=== PATIENT | male | born 1995 | race Caucasian/White ===

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

== ENCOUNTER 2017-02-12 16:32 | Emergency (ER) | payer MEDICAID ==
[2017-02-12 16:46] VITALS: BP 112/68
[2017-02-12] MEDS ORDERED: Magnesium Citrate Solution 296 ML Bottle PO ONE (17:20)
--- NOTE | 2017-02-12 17:25 | EDM.PDOC ---
ED HPI GENERAL MEDICAL PROBLEM - General Chief Complaint: Gastrointestinal Problem Stated Complaint: constipated Time Seen by Provider: 02/12/17 16:50 Source of Information: Reports: Patient History Limitations: Reports: No Limitations - History of Present Illness INITIAL COMMENTS - FREE TEXT/NARRATIVE: 21-year-old male with problems of chronic constipation presents with abdominal pain because he hasn't had a bowel movement in 3 weeks. When pressed he admits he has loose stools and small hard stools but no significant bowel movement. He' s been trying MiraLAX for the last several days without results. No nausea or vomiting, no fever. Onset: Gradual, Unknown/Unsure Location: Reports: Abdomen Severity: Mild Associated Symptoms: Reports: No Other Symptoms Abdominal Pain Score (Numeric/FACES): 8 - Related Data Allergies Allergy/AdvReac Type Severity Reaction Status Date / Time banana Allergy Airway Verified 02/12/17 16:49 Tightness Home Meds: Home Meds Polyethylene Glycol 3350 [MiraLAX] 17 gm PO DAILY 02/12/17 [History] Past Medical History HEENT History: Reports: Impaired Vision Cardiovascular History: Reports: None Respiratory History: Reports: Asthma Gastrointestinal History: Reports: Chronic Constipation Genitourinary History: Reports: None Musculoskeletal History: Reports: None Neurological History: Reports: Concussion Psychiatric History: Reports: Anxiety, Bipolar, Depression Endocrine/Metabolic History: Reports: None Hematologic History: Reports: None Immunologic History: Reports: None Oncologic (Cancer) History: Reports: None Dermatologic History: Reports: None - Infectious Disease History Infectious Disease History: Reports: None - Past Surgical History Head Surgeries/Procedures: Reports: None Cardiovascular Surgical History: Reports: None Musculoskeletal Surgical History: Reports: None Oncologic Surgical History: Reports: None Dermatological Surgical History: Reports: None Social & Family History - Tobacco Use Smoking Status *Q: Former Smoker Years of Tobacco use: 1 Packs/Tins Daily: 0.1 Used Tobacco, but Quit: Yes Month Tobacco Last Used: 2 weeks ago - Caffeine Use Caffeine Use: Reports: Coffee, Energy Drinks, Soda - Recreational Drug Use Recreational Drug Use: Yes Recreational Drug Type: Reports: Marijuana/Hashish Recreational Drug Use Frequency: Weekly - Living Situation & Occupation Living situation: Reports: Single (lives in [place] with Girlfriend and other friends.) ED ROS GENERAL - Review of Systems Review Of Systems: See Below Constitutional: Denies: Fever, Chills Respiratory: Denies: Shortness of Breath GI/Abdominal: Reports: Abdominal Pain, Constipation. Denies: Nausea, Vomiting Skin: Reports: No Symptoms Neurological: Reports: No Symptoms ED EXAM, GI/ABD - Physical Exam Exam: See Below Exam Limited By: No Limitations General Appearance: Alert, No Apparent Distress Respiratory/Chest: No Respiratory Distress GI/Abdominal Exam: Normal Bowel Sounds, Soft Rectal (Males) Exam: Normal Exam, Other (Moderate amount of soft brown stool is present in the rectum). No: Fecal Impaction Course - Vital Signs Last Recorded V/S: Last Vital Signs Temp 96.6 F 02/12/17 16:47 Pulse 85 02/12/17 16:47 Resp 20 02/12/17 16:47 BP 112/68 02/12/17 16:47 Pulse Ox 93 L 02/12/17 16:47 - Orders/Labs/Meds Orders: Active Orders 24 hr Category Date Time Status Abdomen 2V AP Flat Upright [CR] Stat Exams 02/12/17 17:02 Taken Meds: Medications Discontinued Medications Generic Name Dose Route Start Last Admin Trade Name Luis Carlos PRN Reason Stop Dose Admin Magnesium Citrate 296 ml 02/12/17 17:20 02/12/17 17:31 Citrate Of Magnesia PO 02/12/17 17:21 296 ml ONETIME ONE Administration - Re-Assessments/Exams Free Text/Narrative Re-Assessment/Exam: 02/12/17 17:23 A flat and upright abdominal x-ray was obtained. It did show a fair amount of rectal stool but no widespread colonic impaction or bowel obstruction. The patient was offered an enema but declined. He then said magnesium citrate worked for him in the past so he was given 1 bottle of mag citrate with instructions and will recheck next week if not improving satisfactorily. I encouraged him to get more fiber in his diet but he said that he can only afford [employer] noodles and that's all he's been eating for the past month. Departure - Departure Time of Disposition: 17:29 Disposition: Home, Self-Care 01 Condition: Good Clinical Impression: Constipation by delayed colonic transit - Discharge Information Instructions: Constipation, Adult, [id number] Referrals: PCP,None [Primary Care Provider] - Forms: ED Department Discharge Care Plan Goals: Increase fiber in your diet if possible, and use mag citrate as directed. Recheck next week if not improving satisfactorily. - My Orders Last 24 Hours: My Active Orders 02/12/17 17:02 Abdomen 2V AP Flat Upright [CR] Stat - Assessment/Plan Last 24 Hours: My Active Orders 02/12/17 17:02 Abdomen 2V AP Flat Upright [CR] Stat
--- NOTE | 2017-02-13 08:46 | CR ---
Abdomen 2V AP Flat Upright FINDINGS: The bowel gas pattern is unremarkable. There is no bowel distention. There are no pathologi c air-fluid levels. No free air is seen. There is a large amount of stool distending the rectum. Impression 1. Large amount of rectal stool. The finding may reflect fecal impaction.
== END 2017-02-12 17:32 | disposition home or self-care (01) ==
LOC: JP.ED 16:32
DX: K59.01 Slow transit constipation (principal); Z87.891 Personal history of nicotine dependence; Z79.899 Other long term (current) drug therapy; Z91.018 Allergy to other foods
CPT/HCPCS: 74020; 99284; A9270

== ENCOUNTER 2017-02-24 16:13 | Emergency (ER) | payer MEDICAID ==
[2017-02-24 16:26] VITALS: BP 117/65
--- NOTE | 2017-02-24 16:52 | EDM.PDOCBH ---
ED HPI GENERAL MEDICAL PROBLEM - General Chief Complaint: Behavioral/Psych Stated Complaint: EVAL Time Seen by Provider: 02/24/17 16:35 Source of Information: Reports: Patient, RN History Limitations: Reports: No Limitations - History of Present Illness INITIAL COMMENTS - FREE TEXT/NARRATIVE: 21 yo male presents after getting into an argument with his girlfriend and threatening suicide. She called the police who brought him in for evaluation. Fer states that he in fact is not suicidal or depressed. He did not take anything to try and harm himself and he has never attempted suicide in the past. He has no plan. Onset: Today Onset Date: 02/24/17 Onset Time: 15:00 Duration: Minutes:, Resolved Prior to Arrival Location: Reports: Head Severity: Mild Improves with: Reports: Other (time) Context: Reports: Other (fight with girlfriend) Associated Symptoms: Reports: No Other Symptoms Treatments COUPLER: Reports: Other (see below) (none) - Related Data Allergies Allergy/AdvReac Type Severity Reaction Status Date / Time banana Allergy Airway Verified 02/12/17 16:49 Tightness Home Meds: Home Meds Polyethylene Glycol 3350 [MiraLAX] 17 gm PO DAILY 02/12/17 [History] FLUoxetine [PROzac] 20 mg PO DAILY 02/24/17 [History] Omeprazole [Omeprazole] 20 mg PO DAILY 02/24/17 [History] Past Medical History HEENT History: Reports: Impaired Vision Cardiovascular History: Reports: None Respiratory History: Reports: Asthma Gastrointestinal History: Reports: Chronic Constipation Genitourinary History: Reports: None Musculoskeletal History: Reports: None Neurological History: Reports: Concussion Psychiatric History: Reports: Anxiety, Bipolar, Depression Endocrine/Metabolic History: Reports: None Hematologic History: Reports: None Immunologic History: Reports: None Oncologic (Cancer) History: Reports: None Dermatologic History: Reports: None - Infectious Disease History Infectious Disease History: Reports: None - Past Surgical History Head Surgeries/Procedures: Reports: None Cardiovascular Surgical History: Reports: None Musculoskeletal Surgical History: Reports: None Oncologic Surgical History: Reports: None Dermatological Surgical History: Reports: None Social & Family History - Tobacco Use Smoking Status *Q: Never Smoker Years of Tobacco use: 1 Packs/Tins Daily: 0.1 Used Tobacco, but Quit: Yes Month Tobacco Last Used: 2 weeks ago - Caffeine Use Caffeine Use: Reports: Energy Drinks, Soda - Recreational Drug Use Recreational Drug Use: Yes Recreational Drug Type: Reports: Marijuana/Hashish Recreational Drug Use Frequency: Weekly - Living Situation & Occupation Living situation: Reports: Single (lives in [place] with Girlfriend and other friends.) ED ROS GENERAL - Review of Systems Review Of Systems: See Below Constitutional: Reports: No Symptoms HEENT: Reports: No Symptoms Respiratory: Reports: No Symptoms Cardiovascular: Reports: No Symptoms Endocrine: Reports: No Symptoms GI/Abdominal: Reports: No Symptoms : Reports: No Symptoms Musculoskeletal: Reports: No Symptoms Skin: Reports: No Symptoms Neurological: Reports: No Symptoms Psychiatric: Denies: Depression, Homicidal Ideation, Suicidal Ideation ED EXAM, BEHAVIORAL HEALTH - Physical Exam Exam: See Below Exam Limited By: No Limitations General Appearance: Alert, WD/WN, No Apparent Distress Eye Exam: Bilateral Eye: Normal Inspection, Other (good eye contact) Ears: Normal External Exam, Normal Canal, Hearing Grossly Normal Nose: Normal Inspection, Normal Mucosa, No Blood Throat/Mouth: Normal Inspection, Normal Lips, Normal Oropharynx, Normal Voice, No Airway Compromise Head: Atraumatic, Normocephalic Neck: Normal Inspection, Supple, Non-Tender Respiratory/Chest: No Respiratory Distress, Lungs Clear, Normal Breath Sounds, No Accessory Muscle Use Cardiovascular: Regular Rate, Rhythm, No Edema GI/Abdominal: Soft, Non-Tender Back Exam: Normal Inspection Extremities: Normal Inspection, Normal Range of Motion, Non-Tender, No Pedal Edema Neurological: Alert, Normal Mood/Affect, CN II-XII Intact, Normal Cognition, Normal Gait, No Motor/Sensory Deficits, Oriented x 3 Psychiatric: Alert, Normal Affect, Normal Cognition, Normal Mood. No: Depressed Mood, Flat Affect, Tearful, Poor Eye Contact, Homicidal Thoughts, Suicidal Plan, Suicidal Thoughts, Auditory Hallucinations Skin Exam: Warm, Dry, Intact, Normal color, No rash COURSE, BEHAVIORAL HEALTH COMP - Course Vital Signs: Last Vital Signs Temp 36.5 C 02/24/17 16:25 Pulse 80 02/24/17 16:25 Resp 16 02/24/17 16:25 BP 117/65 02/24/17 16:25 Pulse Ox 99 02/24/17 16:25 Orders, Labs, Meds: Active Orders 24 hr Category Date Time Status DRUG SCREEN, URINE [URCHEM] Stat Lab 02/24/17 16:20 Uncollected Departure - Departure Time of Disposition: 16:52 Disposition: Home, Self-Care 01 Condition: Good Clinical Impression: Threatening to self - Discharge Information Referrals: Britney Neal NP [Primary Care Provider] - Forms: ED Department Discharge Additional Instructions: Return here if you actually become suicidal. Otherwise, follow up with your provider for recheck in the next 1-2 weeks. - My Orders Last 24 Hours: My Active Orders 02/24/17 16:20 DRUG SCREEN, URINE [URCHEM] Stat - Assessment/Plan Last 24 Hours: My Active Orders 02/24/17 16:20 DRUG SCREEN, URINE [URCHEM] Stat
== END 2017-02-24 16:58 | disposition home or self-care (01) ==
LOC: JP.ED 16:13
DX: R45.851 Suicidal ideations (principal); F32.9 Major depressive disorder, single episode, unspecified; Z87.891 Personal history of nicotine dependence; Z79.899 Other long term (current) drug therapy; Z91.018 Allergy to other foods
CPT/HCPCS: 99284; 99285

== ENCOUNTER 2017-05-03 09:17 | Emergency (ER) | payer MEDICAID ==
[2017-05-03 09:29] VITALS: BP 124/51
[2017-05-03] MEDS ORDERED: Magnesium Citrate Solution 296 ML Bottle PO ONE (09:47)
--- NOTE | 2017-05-03 09:51 | EDM.PDOC ---
ED HPI GENERAL MEDICAL PROBLEM - General Chief Complaint: Gastrointestinal Problem Stated Complaint: ANAL PAIN/CONSTIPATED Time Seen by Provider: 05/03/17 09:45 Source of Information: Reports: Patient History Limitations: Reports: No Limitations - History of Present Illness INITIAL COMMENTS - FREE TEXT/NARRATIVE: 21-year-old male who tends to get recurring constipation problems. We saw him last fall when he responded to oral mag citrate, over the last several days he' s had an increase in rectal pressure and pain. He did not try any mag citrate because he has no money, his main reason for coming into the emergency room was to get some medicine. No fevers or chills, no nausea or vomiting. Onset: Gradual (Over the past several days) Location: Reports: Other (Most of his complaints are perirectal) Severity: Moderate Associated Symptoms: Denies: Fever/Chills, Loss of Appetite, Malaise, Nausea/ Vomiting, Shortness of Breath, Weakness Rectal Pain Score (Numeric/FACES): 9 - Related Data Allergies Allergy/AdvReac Type Severity Reaction Status Date / Time banana Allergy Airway Verified 02/12/17 16:49 Tightness Home Meds: Home Meds Polyethylene Glycol 3350 [MiraLAX] 17 gm PO DAILY 02/12/17 [History] FLUoxetine [PROzac] 20 mg PO DAILY 02/24/17 [History] Omeprazole [Omeprazole] 20 mg PO DAILY 02/24/17 [History] Past Medical History HEENT History: Reports: Impaired Vision Cardiovascular History: Reports: None Respiratory History: Reports: Asthma Gastrointestinal History: Reports: Chronic Constipation Genitourinary History: Reports: None Musculoskeletal History: Reports: None Neurological History: Reports: Concussion Psychiatric History: Reports: Anxiety, Bipolar, Depression Endocrine/Metabolic History: Reports: None Hematologic History: Reports: None Immunologic History: Reports: None Oncologic (Cancer) History: Reports: None Dermatologic History: Reports: None - Infectious Disease History Infectious Disease History: Reports: None - Past Surgical History Head Surgeries/Procedures: Reports: None Cardiovascular Surgical History: Reports: None Musculoskeletal Surgical History: Reports: None Oncologic Surgical History: Reports: None Dermatological Surgical History: Reports: None Social & Family History - Tobacco Use Smoking Status *Q: Current Some Day Smoker Years of Tobacco use: 2 Packs/Tins Daily: 0.2 Used Tobacco, but Quit: Yes Month/Year Tobacco Last Used: 2 weeks ago - Caffeine Use Caffeine Use: Reports: Energy Drinks, Soda - Recreational Drug Use Recreational Drug Use: Yes Recreational Drug Type: Reports: Marijuana/Hashish Recreational Drug Use Frequency: Weekly - Living Situation & Occupation Living situation: Reports: Single (lives in [place] with Girlfriend and other friends.) ED ROS GENERAL - Review of Systems Review Of Systems: See Below Constitutional: Denies: Fever Respiratory: Denies: Shortness of Breath Cardiovascular: Denies: Chest Pain GI/Abdominal: Denies: Abdominal Pain (Pain is only perirectal and pelvic) Skin: Reports: No Symptoms Neurological: Reports: No Symptoms ED EXAM, GENERAL - Physical Exam Exam: See Below Exam Limited By: Uncooperative (Unfortunately the patient would not allow me to do any exam, not even a visual inspection of the perianal area for hemorrhoids) Respiratory/Chest: No Respiratory Distress Rectal (Males) Exam: Other (Patient refused) Course - Vital Signs Last Recorded V/S: Last Vital Signs Temp 93.7 F L 05/03/17 09:30 Pulse 60 05/03/17 09:30 Resp 16 05/03/17 09:30 BP 124/51 L 05/03/17 09:30 Pulse Ox 97 05/03/17 09:30 - Orders/Labs/Meds Meds: Medications Discontinued Medications Generic Name Dose Route Start Last Admin Trade Name Luis Carlos PRN Reason Stop Dose Admin Magnesium Citrate 296 ml 05/03/17 09:47 05/03/17 09:58 Citrate Of Magnesia PO 05/03/17 09:48 296 ml ONETIME ONE Administration - Re-Assessments/Exams Free Text/Narrative Re-Assessment/Exam: 05/03/17 09:50 Patient was given a bottle of mag citrate to use as prescribed. Departure - Departure Time of Disposition: 09:54 Disposition: Home, Self-Care 01 Condition: Good Clinical Impression: Constipation - Discharge Information Instructions: Constipation, Adult, [id number] Referrals: Kellie Olmstead MD [Primary Care Provider] - Forms: ED Department Discharge Care Plan Goals: Use mag citrate as prescribed, drink lots of water and resume regular MiraLAX and stool softeners if needed to avoid future episodes. Recheck at the clinic in the next 24-48 hours if not improving satisfactorily.
== END 2017-05-03 10:05 | disposition home or self-care (01) ==
LOC: JP.ED 09:17
DX: K59.00 Constipation, unspecified (principal); F17.210 Nicotine dependence, cigarettes, uncomplicated; F41.9 Anxiety disorder, unspecified; F31.9 Bipolar disorder, unspecified; Z79.899 Other long term (current) drug therapy; Z91.018 Allergy to other foods
CPT/HCPCS: 99283; A9270

== ENCOUNTER 2017-10-14 17:10 | Emergency (ER) | payer MEDICAID ==
[2017-10-14 18:05] VITALS: BP 120/62
--- NOTE | 2017-10-14 18:30 | EDM.PDOC ---
ED HPI GENERAL MEDICAL PROBLEM - General Chief Complaint: ENT Problem Stated Complaint: TEMP,SORE THROAT Time Seen by Provider: 10/14/17 18:15 Source of Information: Reports: Patient History Limitations: Reports: No Limitations - History of Present Illness INITIAL COMMENTS - FREE TEXT/NARRATIVE: 21-year-old male with a sore throat for the past 2 days, body aches, cough, and persistent fevers. No nausea or vomiting. Mild headache. Onset: Gradual Duration: Day(s): (2 days) Associated Symptoms: Reports: Cough, Fever/Chills, Headaches, Other (Main complaint is sore throat) - Related Data Allergies Allergy/AdvReac Type Severity Reaction Status Date / Time banana Allergy Airway Verified 10/14/17 18:12 Tightness Home Meds: Home Meds Polyethylene Glycol 3350 [MiraLAX] 17 gm PO DAILY PRN 02/12/17 [History] Past Medical History HEENT History: Reports: Impaired Vision Cardiovascular History: Reports: None Respiratory History: Reports: Asthma Gastrointestinal History: Reports: Chronic Constipation Genitourinary History: Reports: None Musculoskeletal History: Reports: None Neurological History: Reports: Concussion Psychiatric History: Reports: Anxiety, Bipolar, Depression Endocrine/Metabolic History: Reports: None Hematologic History: Reports: None Immunologic History: Reports: None Oncologic (Cancer) History: Reports: None Dermatologic History: Reports: None - Infectious Disease History Infectious Disease History: Reports: None - Past Surgical History Head Surgeries/Procedures: Reports: None Cardiovascular Surgical History: Reports: None Musculoskeletal Surgical History: Reports: None Oncologic Surgical History: Reports: None Dermatological Surgical History: Reports: None Social & Family History - Tobacco Use Tobacco Use Comment: currant some day smoker - Caffeine Use Caffeine Use: Reports: Coffee, Soda - Recreational Drug Use Recreational Drug Use: Yes Recreational Drug Type: Reports: Marijuana/Hashish - Living Situation & Occupation Living situation: Reports: Single (lives in [place] with Girlfriend and other friends.) ED ROS GENERAL - Review of Systems Review Of Systems: See Below Constitutional: Reports: Fever, Chills, Malaise, Decreased Appetite HEENT: Reports: Throat Pain. Denies: Ear Pain Respiratory: Reports: Cough. Denies: Shortness of Breath Cardiovascular: Denies: Chest Pain GI/Abdominal: Denies: Abdominal Pain, Diarrhea, Nausea, Vomiting : Reports: No Symptoms Skin: Reports: No Symptoms Neurological: Reports: No Symptoms ED EXAM, GENERAL - Physical Exam Exam: See Below Exam Limited By: No Limitations General Appearance: Alert, No Apparent Distress Eye Exam: Bilateral Eye: Normal Inspection Ears: Normal TMs Throat/Mouth: Other (Some erythema of the tonsils, no exudate or asymmetry) Head: Atraumatic Neck: Lymphadenopathy (R) (Mild tender cervical adenopathy), Lymphadenopathy (L) Respiratory/Chest: No Respiratory Distress, Lungs Clear Neurological: Alert, Oriented Skin Exam: No Rash Course - Vital Signs Last Recorded V/S: Last Vital Signs Temp 102.1 F H 10/14/17 18:15 Pulse 91 10/14/17 18:15 Resp 18 10/14/17 18:15 BP 120/62 10/14/17 18:15 Pulse Ox 99 10/14/17 18:15 - Orders/Labs/Meds Orders: Active Orders 24 hr Category Date Time Status STREP SCRN A RAPID W CULT CONF [RM] Routine Lab 10/14/17 18:25 Ordered - Re-Assessments/Exams Free Text/Narrative Re-Assessment/Exam: 10/14/17 18:30 Rapid strep was obtained. 10/14/17 18:56 Strep was positive. Patient will be started on Pen-Vee K 500 mg 4 times a day for at least 7 days. Recheck in 2-3 days if not improving satisfactorily. Departure - Departure Time of Disposition: 19:05 Disposition: Home, Self-Care 01 Condition: Good Clinical Impression: Strep pharyngitis - Discharge Information Instructions: Strep Throat, [id number] Referrals: Kellie Olmstead MD [Primary Care Provider] - Forms: ED Department Discharge Care Plan Goals: Take antibiotic 4 times a day for at least 7 days, drink lots of water and get rest for the next few days. Consider rechecking in 2-3 days if not improving despite treatment. Ibuprofen or naproxen will help with pain and fever. - My Orders Last 24 Hours: My Active Orders 10/14/17 18:25 STREP SCRN A RAPID W CULT CONF [RM] Routine - Assessment/Plan Last 24 Hours: My Active Orders 10/14/17 18:25 STREP SCRN A RAPID W CULT CONF [RM] Routine
== END 2017-10-14 19:04 | disposition home or self-care (01) ==
LOC: JP.ED 17:10
DX: J02.0 Streptococcal pharyngitis (principal); Z91.018 Allergy to other foods; F17.200 Nicotine dependence, unspecified, uncomplicated
CPT/HCPCS: 87430; 99284

== ENCOUNTER 2018-02-19 22:19 | Emergency (ER) | payer MEDICAID ==
[2018-02-19 22:50] VITALS: BP 115/65
--- NOTE | 2018-02-19 23:16 | EDM.PDOC ---
ED HPI GENERAL MEDICAL PROBLEM - General Chief Complaint: General Stated Complaint: LUMPS IN ABDOMEN Time Seen by Provider: 02/19/18 22:52 Source of Information: Reports: Patient History Limitations: Reports: No Limitations - History of Present Illness INITIAL COMMENTS - FREE TEXT/NARRATIVE: This young man comes in because he thinks he has inguinal hernias that suddenly appeared. He notices some lumps in his groin in the area of the inguinal ligament that it just popped up within the past 2 days. They are tender. He is sexually active and his partner is here with him. - Related Data Allergies Allergy/AdvReac Type Severity Reaction Status Date / Time avocado Allergy Blurred Verified 02/19/18 22:44 Vision banana Allergy Airway Verified 02/19/18 22:44 Tightness Home Meds: Home Meds Polyethylene Glycol 3350 [MiraLAX] 17 gm PO DAILY PRN 02/12/17 [History] Past Medical History HEENT History: Reports: Impaired Vision Cardiovascular History: Reports: None Respiratory History: Reports: Asthma Gastrointestinal History: Reports: Chronic Constipation Genitourinary History: Reports: None Musculoskeletal History: Reports: None Neurological History: Reports: Concussion Psychiatric History: Reports: ADHD, Anxiety, Depression, Other (See Below) Other Psychiatric History: asbergers Endocrine/Metabolic History: Reports: None Hematologic History: Reports: None Immunologic History: Reports: None Oncologic (Cancer) History: Reports: None Dermatologic History: Reports: None - Infectious Disease History Infectious Disease History: Reports: None - Past Surgical History Head Surgeries/Procedures: Reports: None Cardiovascular Surgical History: Reports: None Musculoskeletal Surgical History: Reports: None Oncologic Surgical History: Reports: None Dermatological Surgical History: Reports: None Social & Family History - Tobacco Use Smoking Status *Q: Never Smoker - Caffeine Use Caffeine Use: Reports: Energy Drinks, Soda - Recreational Drug Use Recreational Drug Use: Yes Drug Use in Last 12 Months: Yes Recreational Drug Use Frequency: Not Used In Over 6 Months - Living Situation & Occupation Living situation: Reports: Single (lives in [place] with Girlfriend and other friends.) ED ROS GENERAL - Review of Systems Review Of Systems: ROS reveals no pertinent complaints other than HPI. ED EXAM, GENERAL - Physical Exam Exam: See Below Exam Limited By: No Limitations General Appearance: Alert, WD/WN, No Apparent Distress (Male) Exam: Other (Bilateral tender inguinal adenopathy consistent with typical LGV. No penile discharge. ) Course - Vital Signs Last Recorded V/S: Last Vital Signs Temp 36.1 C 02/19/18 22:46 Pulse 81 02/19/18 22:46 Resp 16 02/19/18 22:46 BP 115/65 02/19/18 22:46 Pulse Ox 98 02/19/18 22:46 - Orders/Labs/Meds Orders: Active Orders 24 hr Category Date Time Status CHLAMYDIA/GC AMPLIFICATION Routine Lab 02/19/18 23:35 Received - Re-Assessments/Exams Free Text/Narrative Re-Assessment/Exam: 02/20/18 06:49 Urine sent for GC chlamydia. I discussed with lab doing LGV titers doesn't seem that test is really available. I explained the treatment to the patient and his partner the patient will need 21 days of doxycycline and the young lady will need to see her doctor because she'll need to be treated for chlamydia also and I believe she'll need doxycycline twice daily for a week. They are aware that both of them need to be treated simultaneously. Departure - Departure Time of Disposition: 23:11 Disposition: Home, Self-Care 01 Condition: Fair Clinical Impression: Lymphogranuloma venereum - Discharge Information Instructions: Chlamydia, Male Referrals: Kellie Olmstead MD [Primary Care Provider] - Forms: ED Department Discharge Additional Instructions: Or swollen lymph nodes. This is typically what you get from a long-standing Chlamydia infection. This is a sexually transmitted illness and when it gets in the lymph nodes it is called lymphogranuloma venereum. It's treated with doxycycline 100 mg twice daily for 21 days. This is a much longer treatment then plain old Chlamydia. Note that your partner needs to be treated for chlamydia at the same time and she will need to talk to her doctor about this. A test for chlamydia in the urine will be sent out. Even if that test comes back negative I still highly recommend that both you and your partner undergo treatment as above. - My Orders Last 24 Hours: My Active Orders 02/19/18 23:35 CHLAMYDIA/GC AMPLIFICATION Routine - Assessment/Plan Last 24 Hours: My Active Orders 02/19/18 23:35 CHLAMYDIA/GC AMPLIFICATION Routine
[2018-02-24 09:18] LABS: CHLAMYDIA TRACHOMATIS, NAA Positive (Negative); NEISSERIA GONORRHOEAE, NAA Negative (Negative)
== END 2018-02-19 23:40 | disposition home or self-care (01) ==
LOC: JP.ED 22:19
DX: A55 Chlamydial lymphogranuloma (venereum) (principal); Z91.018 Allergy to other foods
CPT/HCPCS: 87491; 87591; 99283; 99284

== ENCOUNTER 2018-06-29 02:42 | Emergency (ER) | payer MEDICAID ==
[2018-06-29 03:00] VITALS: BP 103/58
[2018-06-29] MEDS ORDERED: Ondansetron 4 MG Tab.DIS PO ONE (03:05)
[2018-06-29] MEDS ORDERED: Ondansetron 4 MG Tab.DIS ONE (03:07)
[2018-06-29] MEDS ORDERED: Alum Hydrox/Mag Hydrox/Simeth 15 ML, Lidocaine 2% 15 ML PO ONE ×2 (03:16)
--- NOTE | 2018-06-29 03:22 | EDM.PDOC ---
ED HPI GENERAL MEDICAL PROBLEM - General Chief Complaint: Abdominal Pain Stated Complaint: VOMITING/ABD PAIN Time Seen by Provider: 06/29/18 03:05 Source of Information: Reports: Patient, Old Records, RN History Limitations: Reports: No Limitations - History of Present Illness INITIAL COMMENTS - FREE TEXT/NARRATIVE: 22 yo male here with pain in the epigastric area that began about 11 pm associated with nausea and emesis x 2. No diarrhea. No hematemesis. He has a pHx of recurrent constipation. He had a normal BM for him yesterday that was not hard. He has never had any abdominal surgeries. His pain is less intense now than it was initially. No self tx. Onset: Today Onset Date: 06/28/18 Onset Time: 23:00 Duration: Hour(s): (4+), Improving Location: Reports: Abdomen Quality: Reports: Ache Severity: Moderate (Was severe earlier) Improves with: Reports: Other (? emesis) Worsens with: Reports: Other (unknown) Context: Reports: Other (Hx of constipation) Associated Symptoms: Reports: Nausea/Vomiting. 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 (see below) (none) upper abd Pain Score (Numeric/FACES): 8 - Related Data Allergies Allergy/AdvReac Type Severity Reaction Status Date / Time avocado Allergy Blurred Verified 06/29/18 02:55 Vision banana Allergy Airway Verified 06/29/18 02:55 Tightness Home Meds: Home Meds Polyethylene Glycol 3350 [MiraLAX] 17 gm PO DAILY PRN 02/12/17 [History] Famotidine 40 mg PO BEDTIME #30 tablet 06/29/18 [Rx] Ondansetron [Zofran ODT] 4 mg PO Q6H PRN #7 tab.dis 06/29/18 [Rx] Past Medical History HEENT History: Reports: Impaired Vision Cardiovascular History: Reports: None Respiratory History: Reports: Asthma Gastrointestinal History: Reports: Chronic Constipation Genitourinary History: Reports: None Musculoskeletal History: Reports: None Neurological History: Reports: Concussion Psychiatric History: Reports: ADHD, Anxiety, Depression, Other (See Below) Other Psychiatric History: asbergers Endocrine/Metabolic History: Reports: None Hematologic History: Reports: None Immunologic History: Reports: None Oncologic (Cancer) History: Reports: None Dermatologic History: Reports: None - Infectious Disease History Infectious Disease History: Reports: None - Past Surgical History Head Surgeries/Procedures: Reports: None Cardiovascular Surgical History: Reports: None Musculoskeletal Surgical History: Reports: None Oncologic Surgical History: Reports: None Dermatological Surgical History: Reports: None Social & Family History - Caffeine Use Caffeine Use: Reports: Energy Drinks, Soda - Recreational Drug Use Recreational Drug Use: Yes Recreational Drug Type: Reports: Marijuana/Hashish Recreational Drug Use Frequency: Daily - Living Situation & Occupation Living situation: Reports: Single (lives in [place] with Girlfriend and other friends.) ED ROS GENERAL - Review of Systems Review Of Systems: See Below Constitutional: Reports: No Symptoms HEENT: Reports: No Symptoms Respiratory: Reports: No Symptoms Cardiovascular: Reports: No Symptoms GI/Abdominal: Reports: Abdominal Pain (epigastric), Constipation (intermittent, not now), Nausea, Vomiting. Denies: Black Stool, Bloody Stool, Diarrhea, Distension, Flatus, Hematemesis, Hematochezia, Melena : Reports: No Symptoms Musculoskeletal: Reports: No Symptoms Skin: Reports: No Symptoms Neurological: Reports: No Symptoms Psychiatric: Reports: No Symptoms ED EXAM, GI/ABD - Physical Exam Exam: See Below Exam Limited By: No Limitations General Appearance: Alert, WD/WN, No Apparent Distress Eyes: Bilateral: Normal Appearance Ears: Normal External Exam, Hearing Grossly Normal Nose: Normal Inspection, No Blood Throat/Mouth: Normal Inspection, Normal Lips, Normal Oropharynx, Normal Voice, No Airway Compromise Head: Atraumatic, Normocephalic Neck: Normal Inspection Respiratory/Chest: No Respiratory Distress, Lungs Clear, Normal Breath Sounds, No Accessory Muscle Use Cardiovascular: Regular Rate, Rhythm, No Edema GI/Abdominal Exam: Normal Bowel Sounds, Soft, No Distention, Tender (epigastric) . No: Distended, Guarding, Rigid, Rebound, Hernia Back Exam: Normal Inspection. No: CVA Tenderness (R), CVA Tenderness (L) Extremities: Normal Inspection, Normal Range of Motion, Non-Tender, No Pedal Edema Neurological: Alert, Oriented, CN II-XII Intact, Normal Cognition, No Motor/ Sensory Deficits Psychiatric: Normal Affect, Normal Mood Skin Exam: Warm, Dry, Intact, Normal Color, No Rash Course - Vital Signs Last Recorded V/S: Last Vital Signs Temp 36.2 C 06/29/18 02:57 Pulse 73 06/29/18 02:57 Resp 16 06/29/18 02:57 BP 103/58 L 06/29/18 02:57 Pulse Ox 99 06/29/18 02:57 - Orders/Labs/Meds Orders: Active Orders 24 hr Category Date Time Status LIPASE [CHEM] Stat Lab 06/29/18 03:16 Ordered Meds: Medications Discontinued Medications Generic Name Dose Route Start Last Admin Trade Name Luis Carlos PRN Reason Stop Dose Admin Al Hydroxide/Mg Hydroxide 15 0 ml 06/29/18 03:16 06/29/18 03:21 ml/ Lidocaine HCl 15 ml PO 06/29/18 03:17 15 ml ONETIME ONE Administration Ondansetron HCl 4 mg 06/29/18 03:05 06/29/18 03:09 Zofran Odt PO 06/29/18 03:06 4 mg ONETIME ONE Administration Ondansetron HCl Confirm 06/29/18 03:07 06/29/18 03:21 Zofran Odt Administered 06/29/18 03:08 Not Given Dose 4 mg .ROUTE .STK-MED ONE - Re-Assessments/Exams Free Text/Narrative Re-Assessment/Exam: 06/29/18 03:28 Pain gone after GI cocktail po. Departure - Departure Time of Disposition: 03:45 Disposition: Home, Self-Care 01 Condition: Fair Clinical Impression: Gastritis Qualifiers: Gastritis type: unspecified gastritis Chronicity: acute Gastritis bleeding: without bleeding Qualified Code(s): K29.00 - Acute gastritis without bleeding Nausea and vomiting Qualifiers: Vomiting type: unspecified Vomiting Intractability: non-intractable Qualified Code(s): R11.2 - Nausea with vomiting, unspecified - Discharge Information *PRESCRIPTION DRUG MONITORING PROGRAM REVIEWED*: No *COPY OF PRESCRIPTION DRUG MONITORING REPORT IN PATIENT MELVA: No Instructions: Gastritis, Adult, [id number], Nausea and Vomiting, Adult, Easy- to-Read Referrals: PCP,None [Primary Care Provider] - Forms: ED Department Discharge Additional Instructions: Take Famotidine 40 mg every day at bedtime. Use Zofran every 6 hrs under your tongue as needed for nausea and vomiting. Use acetaminophen 1000 mg every 6 hrs as needed for pain relief. You may use Maalox 30 ml after meals and at bedtime for a few days to speed up the healing of your stomach. Avoid ibuprofen, naproxen, aspirin, caffeine, carbonated beverages or smoking which can all worsen gastritis. Follow up with your provider for recheck within the week. - My Orders Last 24 Hours: My Active Orders 06/29/18 03:16 LIPASE [CHEM] Stat - Assessment/Plan Last 24 Hours: My Active Orders 06/29/18 03:16 LIPASE [CHEM] Stat
[2018-06-29] MEDS ORDERED: Acetaminophen 500 MG Tab PO ONE (03:33)
[2018-06-29] MEDS ORDERED: Famotidine 20 MG Tab PO ONE (03:33)
== END 2018-06-29 03:47 | disposition home or self-care (01) ==
LOC: JP.ED 02:42
DX: K29.00 Acute gastritis without bleeding (principal); J45.909 Unspecified asthma, uncomplicated; R11.2 Nausea with vomiting, unspecified; Z79.899 Other long term (current) drug therapy
CPT/HCPCS: 36415; 83690; 99284; A9270

== ENCOUNTER 2019-01-08 22:34 | Emergency (ER) | payer MEDICAID ==
[2019-01-08 22:52] VITALS: BP 123/71; PULSE 80
[2019-01-08] MEDS ORDERED: LORazepam 2 MG/ML SDV IM ONE (23:19)
--- NOTE | 2019-01-08 23:23 | EDM.PDOC ---
ED HPI GENERAL MEDICAL PROBLEM - General Chief Complaint: General Stated Complaint: LIGHT HEADED WEAK PAINS IN CHEST Time Seen by Provider: 01/08/19 23:15 Source of Information: Reports: Patient, Family, RN Notes Reviewed History Limitations: Reports: No Limitations - History of Present Illness INITIAL COMMENTS - FREE TEXT/NARRATIVE: 23-year-old gentleman presents emergency department today complaint of chest pain nausea shortness of breath feeling like he is going to weakness lightheadedness palpitations and tremor, all the symptoms started about 1 hour prior he has had symptoms like this in the past they have been going on for about a month occur about once a week heart Pain Score (Numeric/FACES): 8 - Related Data Allergies Allergy/AdvReac Type Severity Reaction Status Date / Time avocado Allergy Blurred Verified 01/08/19 23:01 Vision banana Allergy Airway Verified 01/08/19 23:01 Tightness Home Meds: Home Meds Cyclobenzaprine HCl 5 mg PO TID PRN 01/08/19 [History] Past Medical History HEENT History: Reports: Impaired Vision Respiratory History: Reports: Asthma Gastrointestinal History: Reports: Chronic Constipation Neurological History: Reports: Concussion Psychiatric History: Reports: ADHD, Anxiety, Depression, Other (See Below) Other Psychiatric History: asbergers - Past Surgical History Head Surgeries/Procedures: Reports: None Cardiovascular Surgical History: Reports: None Musculoskeletal Surgical History: Reports: None Oncologic Surgical History: Reports: None Dermatological Surgical History: Reports: None Social & Family History - Tobacco Use Smoking Status *Q: Never Smoker Second Hand Smoke Exposure: Yes - Caffeine Use Caffeine Use: Reports: Energy Drinks, Soda - Alcohol Use Days Per Week of Alcohol Use: 1 Number of Drinks Per Day: 6 Total Drinks Per Week: 6 - Recreational Drug Use Recreational Drug Use: Yes Drug Use in Last 12 Months: Yes Recreational Drug Type: Reports: Marijuana/Hashish Recreational Drug Use Frequency: Daily - Living Situation & Occupation Living situation: Reports: Single (lives in [place] with Girlfriend and other friends.) ED ROS GENERAL - Review of Systems Review Of Systems: See Below Constitutional: Reports: Weakness, Fatigue HEENT: Reports: No Symptoms Respiratory: Reports: Shortness of Breath Cardiovascular: Reports: Chest Pain, Dyspnea on Exertion, Lightheadedness, Palpitations GI/Abdominal: Reports: Nausea : Reports: No Symptoms Musculoskeletal: Reports: No Symptoms Skin: Reports: No Symptoms Neurological: Reports: Dizziness ED EXAM, GENERAL - Physical Exam Exam: See Below Exam Limited By: No Limitations General Appearance: Alert, WD/WN, No Apparent Distress Eye Exam: Bilateral Eye: Normal Inspection Throat/Mouth: No Airway Compromise Head: Atraumatic, Normocephalic Neck: Normal Inspection, Supple, Non-Tender, Full Range of Motion Respiratory/Chest: No Respiratory Distress, Lungs Clear, Normal Breath Sounds, No Accessory Muscle Use, Chest Non-Tender Cardiovascular: Regular Rate, Rhythm, No Murmur GI/Abdominal: Soft, Non-Tender Extremities: Normal Inspection, No Pedal Edema Course - Vital Signs Last Recorded V/S: Last Vital Signs Temp 96.5 F 01/08/19 23:07 Pulse 80 01/08/19 23:07 Resp 24 H 01/08/19 23:07 BP 123/71 01/08/19 23:07 Pulse Ox 100 01/08/19 23:07 - Orders/Labs/Meds Orders: Active Orders 24 hr Category Date Time Status Cardiac Monitoring [RC] .As Directed Care 01/08/19 23:19 Active EKG Documentation Completion [RC] ASDIRECTED Care 01/08/19 23:20 Active EKG 12 Lead [EK] Stat Ther 01/08/19 23:19 Ordered Labs: Laboratory Tests 01/08/19 01/08/19 01/08/19 Range/Units 00:05 23:31 23:31 WBC 7.1 (4.5-11.0) K/uL RBC 4.82 (4.30-5.90) M/uL Hgb 14.4 (12.0-15.0) g/dL Hct 42.9 (40.0-54.0) % MCV 89 (80-98) fL MCH 30 (27-31) pg MCHC 34 (32-36) % Plt Count 170 (150-400) K/uL Neut % (Auto) 54 (36-66) % Lymph % (Auto) 36 (24-44) % [place] % (Auto) 6 (2-6) % Eos % (Auto) 3 (2-4) % Baso % (Auto) 0 (0-1) % Sodium 143 (140-148) mmol/L Potassium 3.7 (3.6-5.2) mmol/L Chloride 107 (100-108) mmol/L Carbon Dioxide 27 (21-32) mmol/L Anion Gap 9.4 (5.0-14.0) mmol/L BUN 14 (7-18) mg/dL Creatinine 1.0 (0.8-1.3) mg/dL Est Cr Clr Drug Dosing 105.45 mL/min Estimated GFR (MDRD) > 60 (>60) Glucose 118 H (74-106) mg/dL Lactic Acid (0.4-2.0) mmol/L Calcium 8.2 L (8.5-10.1) mg/dL Total Bilirubin 0.2 (0.2-1.0) mg/dL AST 10 L (15-37) U/L ALT 15 (12-78) U/L Alkaline Phosphatase 82 (46-116) U/L Troponin I < 0.017 (0.000-0.056) ng/mL Total Protein 7.0 (6.4-8.2) g/dL Albumin 4.0 (3.4-5.0) g/dL Globulin 3.0 (2.3-3.5) g/dL Albumin/Globulin Ratio 1.3 (1.2-2.2) Urine Opiates Screen Negative (NEGATIVE) Ur Oxycodone Screen Negative (NEGATIVE) Urine Methadone Screen Negative (NEGATIVE) Ur Propoxyphene Screen Negative (NEGATIVE) Ur Barbiturates Screen Negative (NEGATIVE) Ur Tricyclics Screen Negative (NEGATIVE) Ur Phencyclidine Scrn Negative (NEGATIVE) Ur Amphetamine Screen Negative (NEGATIVE) U Methamphetamines Scrn Negative (NEGATIVE) Urine MDMA Screen Negative (NEGATIVE) U Benzodiazepines Scrn Negative (NEGATIVE) U Cocaine Metab Screen Negative (NEGATIVE) U Marijuana (THC) Screen Negative (NEGATIVE) Ethyl Alcohol mg/dL 01/08/19 01/08/19 Range/Units 23:31 23:31 WBC (4.5-11.0) K/uL RBC (4.30-5.90) M/uL Hgb (12.0-15.0) g/dL Hct (40.0-54.0) % MCV (80-98) fL MCH (27-31) pg MCHC (32-36) % Plt Count (150-400) K/uL Neut % (Auto) (36-66) % Lymph % (Auto) (24-44) % [place] % (Auto) (2-6) % Eos % (Auto) (2-4) % Baso % (Auto) (0-1) % Sodium (140-148) mmol/L Potassium (3.6-5.2) mmol/L Chloride (100-108) mmol/L Carbon Dioxide (21-32) mmol/L Anion Gap (5.0-14.0) mmol/L BUN (7-18) mg/dL Creatinine (0.8-1.3) mg/dL Est Cr Clr Drug Dosing mL/min Estimated GFR (MDRD) (>60) Glucose (74-106) mg/dL Lactic Acid 1.8 (0.4-2.0) mmol/L Calcium (8.5-10.1) mg/dL Total Bilirubin (0.2-1.0) mg/dL AST (15-37) U/L ALT (12-78) U/L Alkaline Phosphatase (46-116) U/L Troponin I (0.000-0.056) ng/mL Total Protein (6.4-8.2) g/dL Albumin (3.4-5.0) g/dL Globulin (2.3-3.5) g/dL Albumin/Globulin Ratio (1.2-2.2) Urine Opiates Screen (NEGATIVE) Ur Oxycodone Screen (NEGATIVE) Urine Methadone Screen (NEGATIVE) Ur Propoxyphene Screen (NEGATIVE) Ur Barbiturates Screen (NEGATIVE) Ur Tricyclics Screen (NEGATIVE) Ur Phencyclidine Scrn (NEGATIVE) Ur Amphetamine Screen (NEGATIVE) U Methamphetamines Scrn (NEGATIVE) Urine MDMA Screen (NEGATIVE) U Benzodiazepines Scrn (NEGATIVE) U Cocaine Metab Screen (NEGATIVE) U Marijuana (THC) Screen (NEGATIVE) Ethyl Alcohol < 3 mg/dL Meds: Medications Discontinued Medications Generic Name Dose Route Start Last Admin Trade Name Freq PRN Reason Stop Dose Admin Lorazepam 0.5 mg 01/08/19 23:19 01/08/19 23:57 Ativan IM 01/08/19 23:20 0.5 mg ONETIME ONE Administration Departure - Departure Time of Disposition: 00:44 Disposition: Home, Self-Care 01 Condition: Fair Clinical Impression: Panic attack - Discharge Information Referrals: PCP,None [Primary Care Provider] - Forms: ED Department Discharge Additional Instructions: Use Ativan as needed for anxiety symptoms, please followup with your primary care provider in 3-5 days if not better, please call return to the emergency department with worsening of symptoms. - My Orders Last 24 Hours: My Active Orders 01/08/19 23:19 Cardiac Monitoring [RC] .As Directed EKG 12 Lead [EK] Stat 01/08/19 23:20 EKG Documentation Completion [RC] ASDIRECTED - Assessment/Plan Last 24 Hours: My Active Orders 01/08/19 23:19 Cardiac Monitoring [RC] .As Directed EKG 12 Lead [EK] Stat 01/08/19 23:20 EKG Documentation Completion [RC] ASDIRECTED Plan: Assessment Acuity = acute Site and laterality = panic attack Etiology = generalized anxiety disorder Manifestations = none Location of injury = Home Lab values = CBC, CMP, troponin within normal limits chest x-ray was negative EKG demonstrates normal sinus rhythm no ST elevations or depressions Plan Good relief with the Ativan provided in the emergency department prescription written for Ativan 0.5 mg 1 tab p.o. 3 times daily as needed total #10 follow- up primary care 3 to 5 days for further evaluation This note was dictated using [employer] voice recognition software please call with any questions on syntax or grammar.
--- NOTE | 2019-01-09 00:28 | CRLCR ---
HISTORY: Chest pain. TECHNIQUE: Two views of the chest. COMPARISON: No prior. FINDINGS: Cardiac size and pulmonary vasculature are within normal limits. There is no lung infiltrate or pulmonary edema. No pneumothorax or pleural effusion. No acute bony abnormality. IMPRESSION: No acute disease. Dictated by Steven Rojo MD @ 01/09/2019 12:27:40 AM Dictated by: Steven Rojo MD @ 01/09/2019 00:27:45 (Electronically Signed)
== END 2019-01-09 00:59 | disposition home or self-care (01) ==
LOC: JP.ED 22:34
DX: F41.0 Panic disorder [episodic paroxysmal anxiety] (principal); J45.909 Unspecified asthma, uncomplicated; Z91.018 Allergy to other foods
CPT/HCPCS: 36415; 71046; 80053; 80305; 80320; 83605; 84484; 85025; 93005; 96372; 99285; J2060; G0480

== ENCOUNTER 2019-02-03 00:52 | Emergency (ER) | payer MEDICAID ==
[2019-02-03 01:26] VITALS: BP 106/62; PULSE 80
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
== END 2019-02-03 01:47 | disposition home or self-care (01) ==
LOC: JP.ED 00:52
DX: L24.9 Irritant contact dermatitis, unspecified cause (principal); M54.6 Pain in thoracic spine; Z91.018 Allergy to other foods
CPT/HCPCS: 99282; 99283

== ENCOUNTER 2019-05-10 02:18 | Emergency (ER) | payer MEDICAID ==
[2019-05-10 02:31] VITALS: BP 104/51; PULSE 83
--- NOTE | 2019-05-10 03:14 | EDM.PDOC ---
ED HPI GENERAL MEDICAL PROBLEM - General Chief Complaint: Abdominal Pain Stated Complaint: PAIN IN THE RECTUM AND LOWER ABD PAIN Time Seen by Provider: 05/10/19 02:50 Source of Information: Reports: Patient History Limitations: Reports: No Limitations - History of Present Illness INITIAL COMMENTS - FREE TEXT/NARRATIVE: This is a 23-year-old male with history of chronic constipation who presents with concerns of abdominal pain. He reports that at approximately 12 am he noticed a relatively rapid onset of lower abdominal pain. The pain is primarily in the left lower quadrant with radiation into the rectum. He has some associated nausea. He has no fevers. He reports that he had 3 normal bowel movements yesterday, however he does have a history of constipation and frequent straining. He is a history of a similar episode of pain last week that resolved spontaneously. He has no urinary discomfort. No scrotal pain. No history of abdominal surgeries. No history of IBD or IBS. Lower Abdomen Pain Score (Numeric/FACES): 8 - Related Data Allergies Allergy/AdvReac Type Severity Reaction Status Date / Time avocado Allergy Blurred Verified 05/10/19 02:32 Vision banana Allergy Airway Verified 05/10/19 02:32 Tightness Home Meds: Home Meds NK [No Known Home Meds] 05/10/19 [History] Past Medical History HEENT History: Reports: Impaired Vision Cardiovascular History: Reports: None Respiratory History: Reports: Asthma Gastrointestinal History: Reports: Chronic Constipation Genitourinary History: Reports: None Musculoskeletal History: Reports: None Neurological History: Reports: Concussion Psychiatric History: Reports: ADHD, Anxiety, Depression, Other (See Below) Other Psychiatric History: asbergers Endocrine/Metabolic History: Reports: None Hematologic History: Reports: None Immunologic History: Reports: None Oncologic (Cancer) History: Reports: None Dermatologic History: Reports: None - Past Surgical History Head Surgeries/Procedures: Reports: None Cardiovascular Surgical History: Reports: None Musculoskeletal Surgical History: Reports: None Oncologic Surgical History: Reports: None Dermatological Surgical History: Reports: None Social & Family History - Tobacco Use Smoking Status *Q: Never Smoker - Caffeine Use Caffeine Use: Reports: None - Recreational Drug Use Recreational Drug Use: Yes Recreational Drug Type: Reports: Marijuana/Hashish Recreational Drug Use Frequency: Rarely - Living Situation & Occupation Living situation: Reports: Single (lives in [place] with Girlfriend and other friends.) ED ROS GENERAL - Review of Systems Review Of Systems: See Below Constitutional: Reports: No Symptoms HEENT: Reports: No Symptoms Respiratory: Reports: No Symptoms Cardiovascular: Reports: No Symptoms Endocrine: Reports: No Symptoms GI/Abdominal: Reports: Abdominal Pain : Reports: No Symptoms Musculoskeletal: Reports: No Symptoms Skin: Reports: No Symptoms Neurological: Reports: No Symptoms Psychiatric: Reports: No Symptoms Hematologic/Lymphatic: Reports: No Symptoms Immunologic: Reports: No Symptoms ED EXAM, GI/ABD - Physical Exam Exam: See Below Exam Limited By: No Limitations General Appearance: Alert, No Apparent Distress Ears: Normal External Exam Nose: Normal Inspection Throat/Mouth: Normal Inspection Head: Atraumatic, Normocephalic Neck: Normal Inspection Respiratory/Chest: No Respiratory Distress Cardiovascular: Regular Rate, Rhythm GI/Abdominal Exam: Soft, No Distention, Tender (LLQ and some RLQ tenderness to deep palpation). No: Rigid, Rebound Back Exam: Normal Inspection Extremities: Normal Inspection Neurological: Alert, Oriented Psychiatric: Normal Affect, Normal Mood Skin Exam: Warm, Dry Course - Vital Signs Last Recorded V/S: Last Vital Signs Temp 36.4 C 05/10/19 02:29 Pulse 83 05/10/19 02:29 Resp 16 05/10/19 02:29 BP 104/51 L 05/10/19 02:29 Pulse Ox 97 05/10/19 02:29 - Orders/Labs/Meds Orders: Active Orders 24 hr Category Date Time Status Abdomen Pelvis w Cont [CT] Stat Exams 05/10/19 03:06 Taken Labs: Laboratory Tests 05/10/19 05/10/19 Range/Units 03:06 03:21 WBC 7.0 (4.5-11.0) K/uL RBC 4.99 (4.30-5.90) M/uL Hgb 14.8 (12.0-15.0) g/dL Hct 44.2 (40.0-54.0) % MCV 89 (80-98) fL MCH 30 (27-31) pg MCHC 34 (32-36) % Plt Count 179 (150-400) K/uL Sodium 141 (140-148) mmol/L Potassium 3.8 (3.6-5.2) mmol/L Chloride 104 (100-108) mmol/L Carbon Dioxide 26 (21-32) mmol/L Anion Gap 11.2 (5.0-14.0) mmol/L BUN 17 (7-18) mg/dL Creatinine 0.9 (0.8-1.3) mg/dL Est Cr Clr Drug Dosing 112.94 mL/min Estimated GFR (MDRD) > 60 (>60) Glucose 97 (74-106) mg/dL Calcium 8.6 (8.5-10.1) mg/dL Total Bilirubin 0.7 D (0.2-1.0) mg/dL AST 14 L (15-37) U/L ALT 20 (12-78) U/L Alkaline Phosphatase 70 (46-116) U/L Total Protein 7.3 (6.4-8.2) g/dL Albumin 4.1 (3.4-5.0) g/dL Globulin 3.2 (2.3-3.5) g/dL Albumin/Globulin Ratio 1.3 (1.2-2.2) Meds: Medications Discontinued Medications Generic Name Dose Route Start Last Admin Trade Name Luis Carlos PRN Reason Stop Dose Admin Sodium Chloride 70 mls @ 3.5 mls/sec 05/10/19 03:17 05/10/19 03:29 Normal Saline IV 05/10/19 03:18 3.5 mls/sec ASDIRECTED STA Administration Iopamidol 100 ml 05/10/19 03:17 05/10/19 03:29 Isovue-300 (61%) IV 05/10/19 03:18 100 ml . DIRECTED STA Administration - Re-Assessments/Exams Free Text/Narrative Re-Assessment/Exam: This is a 23-year-old male who presents with concerns of lower abdominal pain, primarily in the left lower quadrant. On exam he has normal vital signs. He is tender both in the left lower quadrant and to palpation in the right lower quadrant. Overall my concern for an acute surgical abdomen is pretty low. His exam seems consistent with a diverticulitis, however he is very young and this seems unlikely. We discussed doing imaging and work-up versus time and observation until later in the morning and returning for worsening. The patient is electing to perform imaging and labs now. He has never had any abdominal imaging in the past, so this does seem reasonable although I am suspicious he has recurrent pain that is consistent with an IBS type syndrome. 05/10/19 03:14 Free Text/Narrative Re-Assessment/Exam: CT appears to most significant for high stool burden, consistent with known history of constipation Await formal read Anticipate discharge with stool softener, miralax prn 05/10/19 04:15 Departure - Departure Time of Disposition: 04:31 Disposition: Home, Self-Care 01 Clinical Impression: Constipation Qualifiers: Constipation type: unspecified constipation type Qualified Code(s): K59.00 - Constipation, unspecified Abdominal pain Qualifiers: Abdominal location: lower abdomen, unspecified Qualified Code(s): R10.30 - Lower abdominal pain, unspecified - Discharge Information Instructions: Chronic Constipation, Constipation, Adult Referrals: PCP,None [Primary Care Provider] - Forms: ED Department Discharge Additional Instructions: We believe your symptoms are due to constipation, your labs and imaging are otherwise re-assuring. You should work to limit dairy and try to eat a high fiber diet We recommend a stool softener as well as using miralax up to 3 times daily until you have having regular, large bowel movements. Sepsis Event Note - Evaluation Sepsis Screening Result: No Definite Risk - Focused Exam Vital Signs: Vital Signs Temp Pulse Resp BP Pulse Ox 05/10/19 02:29 36.4 C 83 16 104/51 L 97 Date Exam was Performed: 05/10/19 Time Exam was Performed: 04:31 - My Orders Last 24 Hours: My Active Orders 05/10/19 03:06 Abdomen Pelvis w Cont [CT] Stat - Assessment/Plan Last 24 Hours: My Active Orders 05/10/19 03:06 Abdomen Pelvis w Cont [CT] Stat
[2019-05-10] MEDS ORDERED: Iopamidol 612 MG/ML 100 ML Bottle IV STA (03:17)
--- NOTE | 2019-05-10 04:40 | CRLCT ---
INDICATION: Left lower quadrant TECHNIQUE: CT abdomen and pelvis acquired with IV contrast. 100 mL of Isovue-300 administered. COMPARISON: None available FINDINGS: Lower chest: Unremarkable. Liver: Few subcentimeter hepatic low-density lesions, too small to characterize, possibly small cysts. Spleen: Unremarkable. Pancreas: Unremarkable. Gallbladder and bile ducts: Unremarkable. Adrenal glands: Unremarkable. Kidneys: Unremarkable. GI tract: Mild gastric antral wall prominence could be related to underdistention. No mechanical bowel obstruction. A normal appendix. Circumferential rectal wall thickening compatible with a nonspecific proctitis. Stool throughout the colon. Vascular structures: Unremarkable. Lymph nodes: No abnormally enlarged lymph nodes. Multiple subcentimeter mesenteric lymph nodes could be within normal limits for patient of this age. Miscellaneous: No significant free fluid or free air. Pelvic Organs: Slight bladder wall prominence could be related to incomplete distention. Unremarkable prostate. Bones: Unremarkable for age. IMPRESSION: Circumferential rectal wall thickening consistent with a nonspecific proctitis. Correlate clinically. Dictated by Kailash Tong MD @ 05/10/2019 4:39:04 AM Please note that all CT scans at this facility use dose modulation, iterative reconstruction, and/or weight-based dosing when appropriate to reduce radiation dose to as low as reasonably achievable. Dictated by: Kailash Tong MD @ 05/10/2019 04:39:08 (Electronically Signed)
== END 2019-05-10 04:52 | disposition home or self-care (01) ==
LOC: JP.ED 02:18
DX: K59.00 Constipation, unspecified (principal); Z91.018 Allergy to other foods
CPT/HCPCS: 36415; 74177; 80053; 85027; 99284; J7050; Q9967

== ENCOUNTER 2019-07-09 20:38 | Emergency (ER) | payer MEDICAID ==
[2019-07-09 21:55] VITALS: BP 124/70; PULSE 70
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
== END 2019-07-09 23:28 | disposition home or self-care (01) ==
LOC: JP.ED 20:38
DX: S30.1XXA Contusion of abdominal wall, initial encounter (principal); J45.909 Unspecified asthma, uncomplicated; Z91.018 Allergy to other foods; V19.9XXA Pedal cyclist (driver) (passenger) injured in unspecified traffic accident, initial encounter
CPT/HCPCS: 76705; 99283-25

== ENCOUNTER 2020-01-28 20:51 | Emergency (ER) | payer MEDICAID ==
[2020-01-28 21:06] VITALS: BP 116/71; PULSE 77
--- NOTE | 2020-01-28 21:20 | EDM.PDOC ---
ED HPI GENERAL MEDICAL PROBLEM - General Chief Complaint: Chest Pain Stated Complaint: CHEST PAIN Time Seen by Provider: 01/28/20 21:15 Source of Information: Reports: Patient History Limitations: Reports: No Limitations - History of Present Illness INITIAL COMMENTS - FREE TEXT/NARRATIVE: 24-year-old male arrives with intermittent chest pain for the past week, is actually been occurring for years but seems to be worse over the past week. Sharp in nature, left of the sternum and substernal, sometimes hurts to move or breathe and other times does not. No shortness of breath, no cough or fever, no diaphoresis. Denies abdominal problems. Does have a chronic history of anxiety. Is a regular marijuana smoker but not cigarettes. He has been in the emergency room 18 times in the last 3 years for various reasons. Tends to be anxious about his health. Onset: Unknown/Unsure Duration: Week(s): Associated Symptoms: Reports: No Other Symptoms chest pain Pain Score (Numeric/FACES): 3 - Related Data Allergies Allergy/AdvReac Type Severity Reaction Status Date / Time avocado Allergy Blurred Verified 01/28/20 20:59 Vision banana Allergy Airway Verified 01/28/20 20:59 Tightness Home Meds: Home Meds NK [No Known Home Meds] 05/10/19 [History] Past Medical History - Past Health History Medical/Surgical History: Denies Medical/Surgical History HEENT History: Reports: Impaired Vision, Other (See Below) Other HEENT History: glasses Cardiovascular History: Reports: None Respiratory History: Reports: Asthma Gastrointestinal History: Reports: Chronic Constipation Genitourinary History: Reports: None Musculoskeletal History: Reports: Fracture, Other (See Below) Other Musculoskeletal History: left hand fx Neurological History: Reports: Concussion Psychiatric History: Reports: ADHD, Anxiety, Depression, Other (See Below) Other Psychiatric History: asbergers Endocrine/Metabolic History: Reports: None Hematologic History: Reports: None Immunologic History: Reports: None Oncologic (Cancer) History: Reports: None Dermatologic History: Reports: None - Past Surgical History Head Surgeries/Procedures: Reports: None HEENT Surgical History: Reports: None Male Surgical History: Reports: Circumcision Neurological Surgical History: Reports: None Oncologic Surgical History: Reports: None Social & Family History - Tobacco Use Tobacco Use Status *Q: Never Tobacco User - Caffeine Use Caffeine Use: Reports: Soda - Recreational Drug Use Recreational Drug Use: Yes Drug Use in Last 12 Months: Yes Recreational Drug Type: Reports: Marijuana/Hashish Recreational Drug Use Frequency: Weekly - Living Situation & Occupation Living situation: Reports: Single (lives in [place] with Girlfriend and other friends.) ED ROS GENERAL - Review of Systems Review Of Systems: See Below Constitutional: Denies: Fever, Chills HEENT: Denies: Throat Pain Respiratory: Denies: Shortness of Breath, Wheezing, Cough Cardiovascular: Reports: Chest Pain (As in HPI) GI/Abdominal: Denies: Nausea, Vomiting Skin: Reports: No Symptoms Neurological: Denies: Headache Psychiatric: Reports: Anxiety ED EXAM, GENERAL - Physical Exam Exam: See Below Exam Limited By: No Limitations General Appearance: Alert, No Apparent Distress Head: Atraumatic Neck: Supple, Non-Tender Respiratory/Chest: Lungs Clear, Chest Non-Tender (I cannot reproduce chest pain with palpation of the chest) Cardiovascular: Regular Rate, Rhythm. No: Extra Beats GI/Abdominal: Soft, Non-Tender Extremities: Normal Inspection Neurological: Alert, Oriented Psychiatric: Normal Affect, Normal Mood Skin Exam: Warm, Dry Course - Vital Signs Last Recorded V/S: Last Vital Signs Temp 96.7 F L 01/28/20 21:06 Pulse 77 01/28/20 21:06 Resp 14 01/28/20 21:06 BP 116/71 01/28/20 21:06 Pulse Ox 97 01/28/20 21:06 - Orders/Labs/Meds Orders: Active Orders 24 hr Category Date Time Status Chest 2V [CR] Routine Exams 01/28/20 21:20 Taken - Re-Assessments/Exams Free Text/Narrative Re-Assessment/Exam: 01/28/20 21:22 Cardiac monitoring is perfect, he is in a normal sinus rhythm and his vitals are normal. 2 view chest x-ray will be done for reassurance but I think this is likely chest wall pain or intercostal muscle irritability. If the chest x-ray is normal no work-up is needed. 01/28/20 21:33 Chest x-ray is normal, patient was reassured. Increase activity as tolerated in a few days of an anti-inflammatory may be helpful. Recheck with his primary provider if symptoms persist. Departure - Departure Time of Disposition: 21:37 Disposition: Home, Self-Care 01 Clinical Impression: Atypical chest pain, Anxiety about health - Discharge Information Instructions: Nonspecific Chest Pain, Adult, [id number] Referrals: Monalisa Munoz PA-C [Primary Care Provider] - Forms: ED Department Discharge Care Plan Goals: A few days of ibuprofen or naproxen may be helpful. Increase activity as tolerated and consider rechecking next week with a clinic physician to discuss further work-up if not improving satisfactorily. Return anytime if worsening such as difficulty breathing or increased pain Sepsis Event Note (ED) - Evaluation Sepsis Screening Result: No Definite Risk - Focused Exam Vital Signs: Vital Signs Temp Pulse Resp BP Pulse Ox 01/28/20 21:06 96.7 F L 77 14 116/71 97 01/28/20 21:01 96.7 F L 77 14 116/71 97 - My Orders Last 24 Hours: My Active Orders 01/28/20 21:20 Chest 2V [CR] Routine - Assessment/Plan Last 24 Hours: My Active Orders 01/28/20 21:20 Chest 2V [CR] Routine
--- NOTE | 2020-01-30 10:02 | CR ---
CHEST: 2 view CLINICAL HISTORY:Dyspnea COMPARISON:2019 FINDINGS: The heart size, pulmonary vascularity and hilar structures are normal. No infiltrate effusion or pneumothorax is seen. IMPRESSION: No acute cardiopulmonary process.
== END 2020-01-28 21:45 | disposition home or self-care (01) ==
LOC: JP.ED 20:51
DX: F41.9 Anxiety disorder, unspecified (principal); J45.909 Unspecified asthma, uncomplicated; Z91.018 Allergy to other foods
CPT/HCPCS: 71046; 71046-26; 99282; 99284-25